=== PATIENT | male | born 1990 | race Asian ===

== ENCOUNTER 2022-05-29 13:11 | Outpatient (CLI) | payer OTHER | END 2022-05-29 13:12 | disposition home or self-care (01) | LOC: CSHLAB 13:11 | PROVIDERS: ATTEND Family Medicine | DX: Z20.822 Contact with and (suspected) exposure to COVID-19 (principal) | CPT/HCPCS: 87811 ==

== ENCOUNTER 2022-06-02 15:34 | Outpatient (CLI) | payer OTHER | END 2022-06-02 15:35 | disposition home or self-care (01) | LOC: CSHCP 15:34 | PROVIDERS: ATTEND Family Medicine | DX: R06.02 Shortness of breath (principal); R06.00 Dyspnea, unspecified | CPT/HCPCS: 94060; 94726; 94729; 94760 ==